=== PATIENT | female | born 1995 | race Two or more races ===

== ENCOUNTER 2023-11-09 19:36 | Emergency (ER) | payer OTHER | END 2023-11-09 20:15 | disposition left against medical advice (07) | LOC: ER 19:36 | DX: L02.91 Cutaneous abscess, unspecified (principal); Z53.21 Procedure and treatment not carried out due to patient leaving prior to being seen by health care provider ==

== ENCOUNTER 2023-11-11 10:49 | Emergency (ER) | payer OTHER ==
[~2023-11-11] VITALS: Ht 160 cm; Wt 81.9 kg
[2023-11-11 13:06] VITALS: BP 125/79; PULSE 68; RESP 16; TEMP 98.7; O2SAT 95
[2023-11-11] MEDS ORDERED: BACDST PO (13:40)
[2023-11-11] MEDS ORDERED: CEPH500C PO (13:40)
[2023-11-11] MEDS ORDERED: IBUP-1455 PO (13:40)
== END 2023-11-11 13:54 | disposition home or self-care (01) ==
LOC: ER 10:52
DX: L02.214 Cutaneous abscess of groin (principal)

== ENCOUNTER 2024-06-29 09:43 | Emergency (ER) | payer OTHER ==
[~2024-06-29] VITALS: Ht 160 cm; Wt 81.2 kg
[~2024-06-29 09:43] MED LIST: BACDST PO; CEPH500C PO; IBUP-1455 PO
[2024-06-29 10:29] VITALS: BP 131/78; PULSE 68; RESP 20; TEMP 98.7; O2SAT 97
--- NOTE | 2024-06-29 10:40 | ED.PDOC ---
History of Present Illness(SKN HPI Comments 28 year F presents for suture removal. had surgery 1montha ago by dr. connors Chief Complaint: Suture Removal Time Seen by MD: 09:55 Primary Care Provider: BOUBACAR History of Present Illness: Nurses Notes, Medications, Allergies Allergies: Coded Allergies: NO KNOWN ALLERGIES (Unverified , 11/11/23) Home Meds Active Scripts Ibuprofen Micronized (Ibuprofen) 800 Mg Tab, 800 MG PO TID PRN, #40 TAB Prov:[facility] PATIENT CARE SECRETARY 11/11/23 Cephalexin Monohydrate (Cephalexin) 500 Mg Cap, 1 CAP PO QID for 10 Days, #40 CAP Prov:[facility] PATIENT CARE SECRETARY 11/11/23 Sulfamethoxazole W/Trimethopri (Bactrim Ds Tablet) 1 Tab Tb, 1 TAB PO BID for 10 Days, #20 TAB Prov:[facility] PATIENT CARE SECRETARY 11/11/23 Information Source: Patient Mode of Arrival: Ambulatory Past Medical History PAST MEDICAL HISTORY: Denies Surgical History: Denies all surgeries FARE REGISTER REPAIRER History: No Pertinent FARE REGISTER REPAIRER History Family History Family History: Reviewed,noncontributory to illness All Other Systems: Reviewed and Negative (per hpi) Physical Exam General Appearance: No Apparent Distress, Normal HEENT: Normal ENT Inspection, Pharynx Normal, TMs Normal Neck: Full Range of Motion, Non-Tender, Normal, Normal Inspection Respiratory: Chest Non-Tender, Lungs Clear, No Accessory Muscle Use, No Respiratory Distress, Normal Breath Sounds Cardiovascular: No Edema, No JVD, No Murmur, No Gallop, Normal Peripheral Pulses, Regular Rate/Rhythm Breast Exam: Deferred Gastrointestinal: No Organomegaly, Non Tender, No Pulsatile Mass, Normal Bowel Sounds, Soft Genitalia: Deferred Pelvic: Deferred Rectal: Deferred Extremities: No calf tenderness, Normal capillary refill, Normal inspection, Normal range of motion, Non-tender, No pedal edema Musculoskeletal : Apperance: Normal Neurologic: Alert, [employer] II-XII nml as Tested, No Motor Deficits, Normal Affect, Normal Mood, No Sensory Deficits Cerebellar Function: Normal Reflexes: Normal Skin: Dry, Normal Color, Warm Lymphatic: No Adenopathy Was a procedure done? Was a procedure done?: No Differential Diagnosis (INTG) Differential Diagnosis: Other X-Ray, Labs, Meds, VS Vital Signs Date Time Temp Pulse Resp B/P (MAP) Pulse Ox O2 Delivery O2 Flow Rate FiO2 06/29/24 10:29 98.7 68 20 131/78 (95) 97 98.7 06/29/24 10:29 68 20 97 Room Air 06/29/24 09:47 98.7 68 20 131/78 (95) 97 X-Ray, Labs, Meds, VS Comment has not followed up with surgeon, sutures not removed, pt advised to f/u with MD no signs of infection or deep abscess formation at this time return precautions discussed Time of 1ST Reevaluation: 10:30 Reevaluation 1ST: Improved Patient Education/Counseling: Diagnosis, Treatment Family Education/Counseling: Diagnosis, Treatment Departure 1 Departure Time of Disposition: 10:40 Impression: Primary Impression: Encounter for wound re-check Disposition: 01 HOME / SELF CARE / HOMELESS Condition: Stable Discharged With: Self Critical Care Note Critical Care Time?: No Stability Stability form required: No Heart Score Heart Score: Heart Score Response (Comments) Value History N/A 0 EKG N/A 0 Age N/A 0 Risk Factors N/A 0 Troponin N/A 0 Total 0 JANICE RODRIGEZ NP Jun 29, 2024 10:40
== END 2024-06-29 10:47 | disposition home or self-care (01) ==
LOC: ER 09:43
DX: Z48.00 Encounter for change or removal of nonsurgical wound dressing (principal)